=== PATIENT | female | born 1990 | race Caucasian/White ===

== ENCOUNTER 2017-12-14 14:14 | Emergency (ER) | payer OTHER ==
[~2017-12-14] VITALS: Ht 175.3 cm; Wt 89.2 kg
[~2017-12-14 14:14] MED LIST: PRENTAB26 PO
[2017-12-14 14:27] VITALS: TEMP 36.8; Ht 175.3 cm; Wt 89.2 kg
[2017-12-14] MEDS ORDERED: KETOROLAC TROMETHAMINE 30 MG/ML VIAL IV STA (14:42)
[2017-12-14] MEDS ORDERED: ONDANSETRON INJ 2 MG/ML 2 ML VIAL IV STA (14:42)
[2017-12-14] MEDS ORDERED: SODIUM CHLORIDE 0.9% 1000ML 1,000 ML IV STA (14:42)
[2017-12-14 15:12] LABS: BASO % 0.3 %; BASO ABS # 0.02 K/uL (0-0.2); EOS % 1.8 %; EOS ABS # 0.13 K/uL (0-0.5); HEMATOCRIT 45.8 % (37-47); HEMOGLOBIN 15.2 g/dL (12.0-16.0); IG# 0.02 K/uL (0.00-0.02); LYMPH % 32.2 %; LYMPH ABS # 2.31 K/uL (1.2-3.4); MEAN CELL VOLUME 82.7 fL (80-100); MEAN CORPUSCULAR HEMOGLOBIN 27.4 pg (25-34); MEAN CORPUSCULAR HGB CONC 33.2 g/dl (32-36); MEAN PLATELET VOLUME 10.4 fL (7.4-10.4); MONO % 6.1 %; MONO ABS # 0.44 K/uL (0.11-0.59); NEUT % 59.3 %; NEUT ABS # 4.26 K/uL (1.4-6.5); PLATELET COUNT 198 K/uL (130-400); RED CELL DISTRIBUTION WIDTH CV 13.7 % (11.5-14.5); RED CELL DISTRIBUTION WIDTH SD 41.1 fL (36.4-46.3); WHITE BLOOD COUNT 7.18 K/uL (4.8-10.8)
[2017-12-14] MEDS ORDERED: OPTIRAY 320 IV PRN (15:30)
[2017-12-14 15:41] LABS: ALBUMIN 4.3 gm/dl (3.4-5.0); CALCIUM 9.4 mg/dl (8.5-10.1); CREATININE 0.82 mg/dl (0.60-1.20); POTASSIUM 3.7 mmol/L (3.5-5.1); TOTAL PROTEIN 7.9 gm/dl (6.4-8.2)
[2017-12-14] MEDS ORDERED: ACET-1256 PO (16:09)
--- NOTE | 2017-12-14 17:25 | DIAGNOSTIC IMAGING REPORT ---
ABDOMEN AND PELVIS CT WITH IV CONTRAST CT DOSE: 684.52 mGycm HISTORY: Acute generalized abdominal pain abd pain and lower back pain TECHNIQUE: Multiaxial CT images of the abdomen and pelvis were performed following the use of intravenous contrast. A dose lowering technique was utilized adhering to the principles of ALARA. COMPARISON STUDY: Right upper quadrant ultrasound 10/08/2013 FINDINGS: Mild dependent subsegmental bibasilar atelectasis. There is no pneumatosis or pneumoperitoneum identified. Imaged inferior cardiac chambers are unremarkable. Gallbladder is mildly contracted. The liver, spleen, pancreas and adrenal glands appear to be within normal limits. Kidneys, ureters and bladder are unremarkable. Trace free pelvic fluid. Uterus and adnexa are within normal limits. Aorta and IVC are within normal limits. No bulky adenopathy identified. There is no bowel obstruction or focal bowel wall thickening identified. The appendix appears normal. Air-fluid level of the terminal ileum, likely physiologic. No mesenteric inflammatory changes. Breast parenchyma and soft tissues are within normal limits. The bones appear to be intact. Bone island of the right sacral ala and right pubic bone. IMPRESSION: 1. No acute intra-abdominal or intrapelvic abnormality identified. Normal appendix. 2. Mild free pelvic fluid, likely physiologic. Electronically signed by: Mat Figueroa M.D. 12/14/2017 5:23 PM Dictated Date/Time: 12/14/2017 5:17 PM
[2017-12-14 17:45] VITALS: BP 118/67; PULSE 66; O2SAT 99
--- NOTE | 2017-12-14 21:23 | EMERGENCY ROOM VISIT NOTE ---
History Report prepared by Wilfred: Alcides Eubanks Under the Supervision of: Dr. Moustapha Maynard D.O. First contact with patient: 14:35 Chief Complaint: BACK PAIN Stated Complaint: BACK PAIN, CHILLS, PELVIC CRAMPS History of Present Illness The patient is a 27 year old female who presents to the Emergency Room with complaints of worsening lower back pain beginning 4-6 days ago. The patient states that she has been having a mild ache in her right lower back that has worsened over the last few days. She notes that she started to develop bilateral pelvic cramping two days ago. She reports her back pain wraps around to her pelvis. The patient states that she feels as though her pain is near her kidney. She notes that her pain feels similar to menstrual cramps, but she reports that it feels worse. The patient states that she vomited once yesterday during work, but believes that it was due to her pain. She also complains of chills. She notes that her last bowel movement was this morning and was normal. She denies any CP, vaginal bleeding/discharge, and urinary symptoms. She reports that her last normal menstrual period was three weeks ago. The patient states that she does not take any medication and is not on control. Source of History: patient Onset: 4-6 days ago Position: back (lower) Symptom Intensity: mild Quality: ache Timing: worsening Associated Symptoms: + chills, + vomiting (x1), No chest pain, No urinary symptoms Note: The patient also complains of bilateral pelvic cramping. She also denies any abnormal bowel movements and vaginal bleeding/discharge. Review of Systems See HPI for pertinent positives & negatives. A total of 10 systems reviewed and were otherwise negative. Past Medical & Surgical Medical Problems: (1) 35 weeks, contractions (2) Back pain (3) Decreased movement (4) Dehydration (5) Nausea (6) (7) PROM (premature rupture of membranes) (8) Supervision of other normal (9) Vomiting Surgical Problems: (1) S/P tonsillectomy and adenoidectomy Family History Diabetes mellitus Heart disease Hypertension Social History Smoking Status: Current Every Day Smoker Alcohol Use: none Marital Status: Housing Status: lives with family Occupation Status: employed Current/Historical Medications Scheduled Acetaminophen (Tylenol), 500 MG PO PRN UD Allergies Coded Allergies: No Known Allergies (Unverified , 05/29/16) Physical Exam Vital Signs Date Time Temp Pulse Resp B/P (MAP) Pulse Ox O2 Delivery O2 Flow Rate FiO2 12/14/17 17:45 66 18 118/67 99 12/14/17 16:33 62 16 121/62 99 12/14/17 14:27 36.8 94 16 122/80 99 Room Air Physical Exam GENERAL: Sitting up in bed, alert, well appearing, well nourished, no distress, non-toxic EYE EXAM: normal conjunctiva. OROPHARYNX: no exudate, no erythema, lips, buccal mucosa, and tongue normal and mucous membranes are moist NECK: supple, no nuchal rigidity, no adenopathy, non-tender LUNGS: Clear to auscultation. Normal chest wall mechanics HEART: no murmurs, S1 normal and S2 normal ABDOMEN: abdomen soft, non-tender, normo-active bowel sounds, no masses, no rebound or guarding. BACK: Back is symmetrical on inspection and there is no deformity, no CVA tenderness, faint tenderness in right lower back in paraspinal region. SKIN: no rashes and no bruising UPPER EXTREMITIES: upper extremities are grossly normal. LOWER EXTREMITIES: No pitting edema. Flexion and extension of the hips, knees, ankles, and EHL 5/5 bilaterally. Gross sensation is intact. DPs are 2/4 bilateral. NEURO EXAM: Normal sensorium, cranial nerves II-XII grossly intact, normal speech, no gross weakness of arms, no gross weakness of legs. Medical Decision & Procedures ER Provider Diagnostic Interpretation: Radiology results as stated below per my review and the radiologist's interpretation: ABDOMEN AND PELVIS CT WITH IV CONTRAST FINDINGS: Mild dependent subsegmental bibasilar atelectasis. There is no pneumatosis or pneumoperitoneum identified. Imaged inferior cardiac chambers are unremarkable. Gallbladder is mildly contracted. The liver, spleen, pancreas and adrenal glands appear to be within normal limits. Kidneys, ureters and bladder are unremarkable. Trace free pelvic fluid. Uterus and adnexa are within normal limits. Aorta and IVC are within normal limits. No bulky adenopathy identified. There is no bowel obstruction or focal bowel wall thickening identified. The appendix appears normal. Air-fluid level of the terminal ileum, likely physiologic. No mesenteric inflammatory changes. Breast parenchyma and soft tissues are within normal limits. The bones appear to be intact. Bone island of the right sacral ala and right pubic bone. IMPRESSION: 1. No acute intra-abdominal or intrapelvic abnormality identified. Normal appendix. 2. Mild free pelvic fluid, likely physiologic. Electronically signed by: Mat Figueroa M.D. 12/14/2017 5:23 PM Laboratory Results 12/14/17 14:49 Red Blood Count 5.54, Mean Corpuscular Volume 82.7, Mean Corpuscular Hemoglobin 27.4, Mean Corpuscular Hemoglobin Concent 33.2, Mean Platelet Volume 10.4, Neutrophils (%) (Auto) 59.3, Lymphocytes (%) (Auto) 32.2, Monocytes (%) (Auto) 6.1, Eosinophils (%) (Auto) 1.8, Basophils (%) (Auto) 0.3, Neutrophils # (Auto) 4.26, Lymphocytes # (Auto) 2.31, Monocytes # (Auto) 0.44, Eosinophils # (Auto) 0.13, Basophils # (Auto) 0.02 12/14/17 14:49 Test 12/14/17 14:42 12/14/17 14:49 Urine Color YELLOW Urine Appearance CLEAR (CLEAR) Urine pH 8.0 (4.5-7.5) Urine Specific [place] 1.023 (1.000-1.030) Urine Protein NEG (NEG) Urine Glucose (UA) NEG (NEG) Urine Ketones NEG (NEG) Urine Occult Blood NEG (NEG) Urine Nitrite NEG (NEG) Urine Bilirubin NEG (NEG) Urine Urobilinogen NEG (NEG) Urine Leukocyte Esterase NEG (NEG) Urine WBC (Auto) 1-5 /hpf (0-5) Urine RBC (Auto) 0-4 /hpf (0-4) Urine Hyaline Casts (Auto) 1-5 /lpf (0-5) Urine Epithelial Cells (Auto) >30 /lpf (0-5) Urine Bacteria (Auto) NEG (NEG) Urine Test NEG (NEG) White Blood Count 7.18 K/uL (4.8-10.8) Red Blood Count 5.54 M/uL (4.2-5.4) Hemoglobin 15.2 g/dL (12.0-16.0) Hematocrit 45.8 % (37-47) Mean Corpuscular Volume 82.7 fL (80-100) Mean Corpuscular Hemoglobin 27.4 pg (25-34) Mean Corpuscular Hemoglobin Concent 33.2 g/dl (32-36) Platelet Count 198 K/uL (130-400) Mean Platelet Volume 10.4 fL (7.4-10.4) Neutrophils (%) (Auto) 59.3 % Lymphocytes (%) (Auto) 32.2 % Monocytes (%) (Auto) 6.1 % Eosinophils (%) (Auto) 1.8 % Basophils (%) (Auto) 0.3 % Neutrophils # (Auto) 4.26 K/uL (1.4-6.5) Lymphocytes # (Auto) 2.31 K/uL (1.2-3.4) Monocytes # (Auto) 0.44 K/uL (0.11-0.59) Eosinophils # (Auto) 0.13 K/uL (0-0.5) Basophils # (Auto) 0.02 K/uL (0-0.2) RDW Standard Deviation 41.1 fL (36.4-46.3) RDW Coefficient of Variation 13.7 % (11.5-14.5) Immature Granulocyte % (Auto) 0.3 % Immature Granulocyte # (Auto) 0.02 K/uL (0.00-0.02) Anion Gap 4.0 mmol/L (3-11) Est Creatinine Clear Calc Drug Dose 124.9 ml/min Estimated GFR () 115.3 Estimated GFR (Non- 99.5 BUN/Creatinine Ratio 14.2 (10-20) Calcium Level 9.4 mg/dl (8.5-10.1) Total Bilirubin 0.4 mg/dl (0.2-1) Direct Bilirubin 0.1 mg/dl (0-0.2) Aspartate Amino Transf (AST/SGOT) 12 U/L (15-37) Alanine Aminotransferase (ALT/SGPT) 14 U/L (12-78) Alkaline Phosphatase 71 U/L (45-117) Total Protein 7.9 gm/dl (6.4-8.2) Albumin 4.3 gm/dl (3.4-5.0) Lipase 145 U/L (73-393) Laboratory results per my review. Medications Administered Medications (Trade) Dose Ordered Sig/Dilan Route Start Time Stop Time Status Last Admin Dose Admin Sodium Chloride 1,000 ml @ 999 mls/hr Q1H1M STAT IV 12/14/17 14:42 12/14/17 15:42 DC 12/14/17 15:00 999 MLS/HR Ondansetron HCl (Zofran Inj) 4 mg NOW STAT IV 12/14/17 14:42 12/14/17 14:43 DC 12/14/17 15:01 4 MG Ketorolac Tromethamine (Toradol Inj) 30 mg NOW STAT IV 12/14/17 14:42 12/14/17 14:43 DC 12/14/17 15:01 30 MG ED Course ED COURSE: Vital signs were reviewed and were shown to be normal. The patients medical record was reviewed The above diagnostic studies were performed and reviewed. ED treatments and interventions as stated above. 1435: The patient was evaluated in room A3. A complete history and physical examination was performed. 1442: Toradol Inj 30mg IV, Zofran Inj 4mg IV, Sodium Chloride 1000 ml @ 999 mls/ hr IV 1801: Upon reevaluation, the patient is stable. I discussed my findings with the patient and she understands and agrees with the treatment plan. Based on the patients age, coexisting illnesses, exam and lab findings the decision to treat as an outpatient was made. The patient remained stable while under my care. The patient appeared well at the time of discharge. Medical Decision Differential diagnoses includes but is not limited to gastritis, peptic ulcer disease, GERD, gallbladder disease, pancreatitis, small bowel obstruction, acute coronary syndrome, pericarditis, ischemic bowel, irritable bowel disease, irritable bowel syndrome, appendicitis, diverticulitis, malignancy, hernia, urinary tract infection, torsion, /ectopic , perforation, trauma, infectious, musculoskeletal, disc herniation, fracture, aortic disease, metastatic disease, cord compression, discitis, infection, renal colic, gastrointestinal, acute exacerbation of chronic back pain, sciatica, cauda equina, as well as others were entertained. Patient is a 27-year-old female who presents the ER for lower back pain associated with abdominal cramps. Flank pain has been present for the past 4-5 days on the right. Cramping started about 2 days ago. She did vomit once. CBC along with BMP, LFTs, bilirubin and lipase is unremarkable. UA was negative. was negative. Patient was updated at bedside. CT abdomen pelvis was benign. Nothing to suggest cauda equina. Patient was given Zofran fluids and Toradol. She did feel slightly better. She is updated at bedside. No vaginal complaints or vaginal discharge. I do not feel as though this consistent with PND. Patient was discharged follow-up with PCP as an outpatient. Discussed with Pt concerning signs and symptoms to watch out for. Pt was instructed to follow up with their PCP and discussed with the patient their option to return to the ED at anytime for persistent or worsening symptoms. The appropriate anticipatory guidance and out-patient management, including indications for return to the emergency department, were explained at length to the patient and understood. Medication Reconcilliation Current Medication List: was personally reviewed by me Blood Pressure Screening Patient's blood pressure: Normal blood pressure Blood pressure disposition: Did not require urgent referral Impression Primary Impression: Abdominal pain Additional Impression: Lower back pain Scribe Attestation The scribe's documentation has been prepared under my direction and personally reviewed by me in its entirety. I confirm that the note above accurately reflects all work, treatment, procedures, and medical decision making performed by me. Departure Information Dispostion Home / Self-Care Referrals No Doctor, Assigned (PCP) Forms HOME CARE DOCUMENTATION FORM, IMPORTANT VISIT INFORMATION Patient Instructions My [facility] Additional Instructions Please follow up with your primary care doctor with in the next 24 hours. Any worsening of your symptoms, please return to the ED immediately. This includes any fevers greater than 100.4, worsening pain, chest pain, shortness breath, persistent nausea, vomiting, unable to eat or drink, or any other concerning signs or symptoms from your standpoint. Please take Tylenol or Motrin as needed for pain. Problem Qualifiers Primary Impression: Abdominal pain Abdominal location: unspecified location Qualified Codes: R10.9 - Unspecified abdominal pain Additional Impression: Lower back pain Chronicity: acute Back pain laterality: bilateral Sciatica presence: without sciatica Qualified Codes: M54.5 - Low back pain
== END 2017-12-14 17:52 | disposition home or self-care (01) ==
LOC: C.EDB 14:15 → C.EDA 17:52
DX: R10.2 Pelvic and perineal pain (principal); M54.5 Low back pain; F17.200 Nicotine dependence, unspecified, uncomplicated

== ENCOUNTER 2019-02-10 13:09 | Inpatient (IN) ==
[2019-02-10] MEDS ORDERED: OXYTOCIN 30 UNITS/500 ML BAG IV PRN ×3 (13:23→23:50)
[2019-02-10] MEDS ORDERED: PENICILLIN G POTASSIUM 6 MU in DEXTROSE 5% 250 ML IV STA (13:51)
[2019-02-10] MEDS: LACTATED RINGER'S 1,000 ML IV PRN ×2 (14:00→16:54)
[2019-02-10 14:02] LABS: Hematocrit (blood only) 37.7 % (37-47); Hemoglobin 12.5 g/dL (12.0-16.0); Mean Corpuscular Volume 77.6 fL (80-100); Mean Platelet Volume 10.2 fL (7.4-10.4); Platelet Count 161 K/uL (130-400); RDW Coefficient of Variation 13.5 % (11.5-14.5); RDW Standard Deviation 38.3 fL (36.4-46.3); Red Blood Count 4.86 M/uL (4.2-5.4); White Blood Count 11.14 K/uL (4.8-10.8)
[2019-02-10 14:06] LABS: Mean Corpuscular Hgb Conc 33.2 g/dL (32-36)
[2019-02-10] MEDS ORDERED: BUPIVACAINE 0.25% 30 ML VIAL ONE (16:05)
[2019-02-10] MEDS ORDERED: fentaNYL citrate 100 MCG/2 ML VIAL ONE (16:06)
[2019-02-10] MEDS ORDERED: fentaNYL 2MCG/ML ROPIV 1.25MG/ML 100 ML BAG EPI ONE (16:06)
[2019-02-10] MEDS ORDERED: ePHEDrine sulfate 50 MG/ML AMP ONE (16:06)
--- NOTE | 2019-02-10 16:47 | Anesthesiology Consultation ---
Date of Service February 10, 2019 Assessment & Plan Chart Review Chart Review: Acceptable Risk for Surgery, Patient NOT seen in Pre Admission Testing and Acceptable Risk for Labor Epidural Consults Requested none ASA ASA2 Proposed Anesthesia Anesthesia Type: Labor Epidural and CSE Risk / Benefits Reviewed With: PT / POA / Parent / Guardian, Accepts Plan and Informed Consent Obtained History Height/Weight Height: 5 ft 8 in Weight: 109.769 kg Allergies Allergy/AdvReac Type Severity Reaction Status Date / Time No Known Allergies Allergy Verified 02/09/19 13:27 Medications Home Medications Medication Instructions Recorded Confirmed Last Taken vit-iron fum-folic ac 1 tab PO DAILY 02/09/19 02/10/19 02/10/19 08:00 [ Vitamin] Active Medications Generic Name Dose Route Start Last Admin Trade Name Freq PRN Reason Stop Dose Admin Oxytocin 30 units in 500 mls @ 10 mls/hr 02/10/19 13:26 02/10/19 16:37 Pitocin IV 03/12/19 13:25 0.6 units/hr .Q24H PRN 10 mls/hr Labor Induction/Augmentation Titration Protocol 0.6 UNITS/HR Lactated Ringer's 1,000 mls @ 125 mls/hr 02/10/19 13:23 02/10/19 16:02 Lr IV 02/12/19 13:22 999 mls/hr .Q8H PRN Infusion L&D Protocol Protocol NPO Date Last Intake of Fluids: 02/10/19 Time Last Intake of Fluids: 14:00 Date Last Intake of Solids: 02/10/19 Time Last Intake of Solids: 14:00 Past Medical History Medical History GERD (gastroesophageal reflux disease) Obese Exercise / Class Metabolic Activity II 4-5 Yardwork/Stairs/Walk up hill Past Surgical History Surgical History H/O LEEP Past Anesthesia History No Hx of Anesthesia Complications and No Family Hx of Anesthesia Complications History of PONV No Hx of PONV and No Hx of Motion Sickness Social History Smoking Status: Former smoker Do You Dip or Chew Tobacco: No Hx Alcohol Use: No Hx Substance Use: No Physical Exam Vital Signs Last Vital Signs Temp 37.1 C 02/10/19 16:36 Pulse 84 02/10/19 16:42 Resp 20 02/10/19 16:36 BP 127/91 02/10/19 16:36 Pulse Ox 100 02/10/19 16:42 Constitutional + obese ENMT Thyromental Distance: > or= 3.5 Finger Breadths Mallampati Class: II Neck normal visual inspection and trachea midline; neck extension not limited Respiratory normal respiratory effort Auscultation: lungs clear to auscultation bilaterally Cardiovascular Rate/Rhythm: regular rate and regular rhythm Heart Sounds: no murmur Musculoskeletal Spine: lumbar spine normal to inspection; normal cervical ROM Neurologic moves all extremities Motor/Sensory: no sensory deficit Psychiatric Orientation: alert and oriented x 3 Testing Laboratory Results 02/10/19 13:51
[2019-02-10] MEDS ORDERED: NALOXONE HCL 0.4 MG/1 ML VIAL/CARP IV PRN (17:09)
[2019-02-10] MEDS ORDERED: fentaNYL 2MCG/ML ROPIV 1.25MG/ML 100 ML BAG EPI PRN (17:09)
[2019-02-10] MEDS ORDERED: NALBUPHINE HCL INJ 10 MG/ML AMP IV PRN (17:09)
[2019-02-10] MEDS ORDERED: ONDANSETRON INJ 2 MG/ML 2 ML VIAL IV PRN (17:09)
[2019-02-10] MEDS ORDERED: DiphenhydrAMINE HCL 50 MG/ML VIAL IV PRN (17:09)
[2019-02-10] MEDS ORDERED: ePHEDrine sulfate 50 MG/ML AMP IV PRN (17:09)
[2019-02-10] MEDS ORDERED: PROMETHAZINE HCL 25 MG in SODIUM CHLORIDE 0.9% 50 ML IV PRN (17:09)
[2019-02-10] MEDS ORDERED: NALOXONE HCL 1 MG in SODIUM CHLORIDE 0.9% 1000ML 1,000 ML IV PRN (17:09)
--- NOTE | 2019-02-10 18:18 | Labor Progress Brief Note ---
Date of Service February 10, 2019 Subjective Reason For Note: Routine Evaluation Assessment & Plan (1) PROM (premature rupture of membranes): 28yo at 37.1 weeks GA. PROM. 1. Fetus: Cat 1 2. Labor: PROM. will start oxytocin. 3. Vitals: wnl 4. GBS Unknown with possible rupture > 24 hour will start PCN. (2) Term : Physical Exam Genitourinary: OB Exam Abdomen: + vertex and + regular contractions Manual OB Exam: + cervical dilation 1 cm, + cervical effacement 70% and + station -2 OB Exam Monitor Tracing: + external FHT monitor used, + external uterine monitor used and + category I Results & Data Vital Signs (Past 12 Hours) Vital Signs Temp Pulse Resp BP Pulse Ox 02/10/19 18:07 73 99 02/10/19 18:04 92 H 111/64 02/10/19 18:02 85 98 02/10/19 18:00 37.0 C 20 02/10/19 17:59 101 H 109/57 L 02/10/19 17:57 91 H 99 02/10/19 17:54 100 H 116/60 02/10/19 17:52 109 H 99 02/10/19 17:50 89 117/56 L 02/10/19 17:47 95 H 98 02/10/19 17:45 90 118/58 L 02/10/19 17:42 102 H 98 02/10/19 17:39 96 H 111/55 L 02/10/19 17:37 103 H 98 02/10/19 17:34 100 H 114/58 L 02/10/19 17:32 93 H 99 02/10/19 17:30 87 18 118/59 L 02/10/19 17:27 98 H 100 02/10/19 17:25 100 H 117/59 L 02/10/19 17:22 101 H 99 02/10/19 17:19 94 H 101/57 L 02/10/19 17:17 100 H 109/59 L 99 02/10/19 17:15 108 H 113/69 02/10/19 17:13 88 115/64 02/10/19 17:12 119 H 98 02/10/19 17:11 108 H 111/64 02/10/19 17:09 126 H 20 103/62 02/10/19 17:07 109 H 121/58 L 100 02/10/19 17:05 120 H 121/75 02/10/19 17:03 103 H 20 120/67 02/10/19 17:02 110 H 134/77 99 02/10/19 16:57 114 H 99 02/10/19 16:52 124 H 100 02/10/19 16:47 105 H 98 02/10/19 16:42 84 100 02/10/19 16:37 108 H 98 02/10/19 16:36 37.1 C 82 20 127/91 02/10/19 16:32 101 H 98 02/10/19 16:27 98 H 98 02/10/19 16:22 101 H 100 02/10/19 16:17 112 H 96 02/10/19 15:36 100 H 131/85 02/10/19 14:31 37.2 C 85 20 131/79 02/10/19 13:27 103 H 148/97 H 02/10/19 13:12 36.7 C 125 H 20 142/99 H
--- NOTE | 2019-02-10 18:22 | History & Physical Report ---
Date of Service February 10, 2019 Assessment & Plan (1) PROM (premature rupture of membranes): 28yo at 37.1 weeks GA. PROM. 1. Fetus: Cat 1 2. Labor: PROM. will start oxytocin. 3. Vitals: wnl 4. GBS Unknown with possible rupture > 24 hour will start PCN. (2) Term : History of Present Illness Primary Care Provider: NO PCP 28yo at 37.1 weeks GA. PROM with positive Amnisure in clinic today. Reports irregular contractions. Denies VB, LOF. Good FM. complicated by prior LEEP. Allergies Allergy/AdvReac Type Severity Reaction Status Date / Time No Known Allergies Allergy Verified 02/09/19 13:27 Home Medications Home Medications Medication Instructions Recorded Confirmed Type vit-iron fum-folic ac 1 tab PO DAILY 02/09/19 02/10/19 History [ Vitamin] Patient History Medical History GERD (gastroesophageal reflux disease) Obese Surgical History H/O LEEP Social History Preferred Language: Azeri Communication Ability: Effective Beliefs That Will Affect Care: None marital status: Current Living Situation: Spouse Feels Safe at Home: Yes Smoking Status: Former smoker Second Hand Exposure: No Hx Alcohol Use: No Hx Substance Use: No Physical Exam Genitourinary: OB Exam Abdomen: + vertex and + irregular contractions Manual OB Exam: + cervical dilation 1 cm, + cervical effacement 50% and + station -2 OB Exam Monitor Tracing: + external FHT monitor used, + external uterine monitor used and + category I Results & Data Vital Signs (Past 12 Hours) Vital Signs Temp Pulse Resp BP Pulse Ox 02/10/19 18:12 85 100 02/10/19 18:07 73 99 02/10/19 18:04 92 H 111/64 02/10/19 18:02 85 98 02/10/19 18:00 37.0 C 20 02/10/19 17:59 101 H 109/57 L 02/10/19 17:57 91 H 99 02/10/19 17:54 100 H 116/60 02/10/19 17:52 109 H 99 02/10/19 17:50 89 117/56 L 02/10/19 17:47 95 H 98 02/10/19 17:45 90 118/58 L 02/10/19 17:42 102 H 98 02/10/19 17:39 96 H 111/55 L 02/10/19 17:37 103 H 98 02/10/19 17:34 100 H 114/58 L 02/10/19 17:32 93 H 99 02/10/19 17:30 87 18 118/59 L 02/10/19 17:27 98 H 100 02/10/19 17:25 100 H 117/59 L 02/10/19 17:22 101 H 99 02/10/19 17:19 94 H 101/57 L 02/10/19 17:17 100 H 109/59 L 99 02/10/19 17:15 108 H 113/69 02/10/19 17:13 88 115/64 02/10/19 17:12 119 H 98 02/10/19 17:11 108 H 111/64 02/10/19 17:09 126 H 20 103/62 02/10/19 17:07 109 H 121/58 L 100 02/10/19 17:05 120 H 121/75 02/10/19 17:03 103 H 20 120/67 02/10/19 17:02 110 H 134/77 99 02/10/19 16:57 114 H 99 02/10/19 16:52 124 H 100 02/10/19 16:47 105 H 98 02/10/19 16:42 84 100 02/10/19 16:37 108 H 98 02/10/19 16:36 37.1 C 82 20 127/91 02/10/19 16:32 101 H 98 02/10/19 16:27 98 H 98 02/10/19 16:22 101 H 100 02/10/19 16:17 112 H 96 02/10/19 15:36 100 H 131/85 02/10/19 14:31 37.2 C 85 20 131/79 02/10/19 13:27 103 H 148/97 H 02/10/19 13:12 36.7 C 125 H 20 142/99 H
[2019-02-10] MEDS: PENICILLIN G POTASSIUM 3 MU in DEXTROSE 5% 100 ML IV PRN ×2 (18:34→22:21)
[2019-02-10] MEDS ORDERED: BISACODYL 10 MG SUPP PR PRN (23:50)
[2019-02-10] MEDS ORDERED: SUPERCREAM 0.870% 15 GM JAR EXT PRN (23:50)
[2019-02-10] MEDS ORDERED: ACETAMINOPHEN 325 MG TAB PO PRN (23:50)
[2019-02-10] MEDS ORDERED: HYDROCORTISONE ACETATE 25 MG SUPP PR PRN (23:50)
[2019-02-10] MEDS ORDERED: BENZOCAINE 20% AER SPR 82.5 GM CAN EXT PRN (23:50)
--- NOTE | 2019-02-11 00:56 | Anesthesia Procedure Note ---
Date of Service February 11, 2019 Anesthesia Post Epidural Note Vital Signs Vital Signs: Temp Pulse Resp BP Pulse Ox 36.7 C 88 16 121/67 96 02/10/19 23:00 02/11/19 00:45 02/11/19 00:45 02/11/19 00:45 02/10/19 23:57 Pain Intensity Abdomen: Pain Intensity: 5 Notes Mental Status: alert / awake / arousable Nausea / Vomiting: adequately controlled Pain: adequately controlled Airway Patency, RR, SpO2: stable & adequate BP & HR: stable & adequate Hydration State: stable & adequate Neuraxial Anesthesia: was administered and sensory block is resolving Anesthetic Complications: no major complications apparent Epidural: Removed without complications and With tip intact
--- NOTE | 2019-02-11 01:37 | Delivery Summary ---
DATE OF OPERATION: 02/10/2019 DATE OF SERVICE: 02/10/2019 PROCEDURE: Normal spontaneous vaginal delivery. SURGEON: Renny Blackman MD PREOPERATIVE DIAGNOSES: 1. Single intrauterine at 37 weeks gestational age. 2. Premature rupture of membranes. 3. Group B streptococcus unknown. POSTOPERATIVE DIAGNOSES: 1. Single intrauterine at 37 weeks gestational age. 2. Premature rupture of membranes. 3. Group B streptococcus unknown. 4. Status post delivery. ESTIMATED BLOOD LOSS: 200 mL. DRAINS: None. FLUIDS: Continuous lactated ringer. URINE OUTPUT: Not measured. COMPLICATIONS: None. FINDINGS: There is noted to be a viable with Apgars of 8 and 9 at 1 and 5 minutes respectively and weight pending. INDICATIONS: Ms. Heidi Mackay is 28-year-old G3, P2-0-0-2, admitted at 37 weeks gestational age with premature rupture of membranes. The patient reports that she has been leaking for approximately 24 hours. Prior to evaluation, she had positive Amnisure in clinic and on initial evaluation was found to be 1 cm dilated, 50% effaced, -2 station. The patient was started on oxytocin per regular protocol. She received an epidural for anesthesia and progressed in labor. PROCEDURE: The patient progressed to 10 cm dilated, 100% effaced, +3 station, pushed over intact perineum over 1 contraction, delivered a viable . Head of the delivered in ZANA position, rest into right transverse. Nuchal cord x1 was noted. Body and shoulders quickly followed. was noted to be vigorous upon delivery. The 1 minute delayed cord clamping was initiated for which the cord was double clamped and cut. The cord blood was then obtained. Attention was then turned to delivery. The placenta was delivered intact, 3-vessel cord, gentle cord traction. On inspection of the perineum, vagina and cervix, there is noted to be no lacerations. Needle, sponge and instrument counts were correct at the completion of the case. Both mother and were stable in the immediate post-delivery. I attest to the content of the Intraoperative Record and any orders documented therein. Any exception s are noted below.
--- NOTE | 2019-02-11 05:34 | Obstetrical Progress Note ---
Date of Service February 11, 2019 Assessment & Plan Day #:: 1 ([28 y/o s/p vaginal delivery @ 37 wks] -PPD#1 - GBS pending, Blood Type O+ - Feels well today. Eating well, voiding well, ambulating well. - Pain well controlled. - Routine post care - After discharge will have [address] Blackman.) Subjective Ambulation: ambulating normally Voiding: no voiding problems Passing Gas:: No Diet Tolerance:: regular diet Lochia:: Moderate (slightly more than heavy period) Feeding Type:: breast feeding Current Pain Level(1-10): 2 (crampy) Physical Exam OB PE General: Alert, oriented. No acute distress. Cardiac: Regular rate and rhythm, no murmurs/rubs/gallops. Respiratory: Clear to auscultation anterior and posteriorly, no wheezes/rales/rhonchi. No increased work of breathing. Symmetrical chest rise. No respiratory distress. Abdomen: Soft, nontender, nondistended. Bowel sounds present. Uterus: Uterine fundus firm, palpable 1 cm above umbilicus. Lower Extremities: No lower extremity edema or swelling. No deep calf pain. Manasa's negative bilaterally. OB ROS Denies fever, chills, sweats Denies shortness of breath, difficulty breathing, chest pain, palpitations, chest pressure. Denies breast pain. Denies dysuria. Denies headache. Results & Data Vital Signs (Past 12 Hours) Vital Signs Temp Pulse Pulse Resp BP BP Pulse Ox 02/11/19 02:30 36.8 C 75 18 124/77 02/11/19 02:15 37.2 C 91 H 16 126/77 02/11/19 01:46 106 H 132/61 02/11/19 01:30 90 115/55 L 02/11/19 01:15 108 H 18 118/70 02/11/19 01:00 93 H 118/66 02/11/19 00:45 88 16 121/67 02/11/19 00:30 92 H 16 129/68 02/11/19 00:18 97 H 130/68 02/11/19 00:16 105 H 16 144/102 H 02/11/19 00:00 85 18 117/60 02/10/19 23:57 84 96 02/10/19 23:52 89 96 02/10/19 23:47 81 98 1819 23:46 87 20 121/57 L 02/10/19 23:42 84 100 1819 23:37 114 H 100 02/10/19 23:32 97 H 100 18 23:27 85 100 02/10/19 23:22 86 96 18 23:19 84 20 122/68 02/10/19 23:17 90 98 02/10/19 23:12 91 H 99 02/10/19 23:07 93 H 98 02/10/19 23:04 116 H 115/66 02/10/19 23:02 100 H 98 02/10/19 23:00 36.7 C 18 02/10/19 22:57 122 H 98 02/10/19 22:52 89 95 02/10/19 22:50 85 128/76 02/10/19 22:47 80 96 02/10/19 22:42 93 H 98 02/10/19 22:37 90 97 02/10/19 22:35 87 16 120/73 02/10/19 22:32 85 98 02/10/19 22:27 90 100 02/10/19 22:22 100 H 98 02/10/19 22:19 95 H 16 155/88 H 02/10/19 22:17 96 H 99 02/10/19 22:12 79 99 02/10/19 22:07 96 H 96 02/10/19 22:04 86 16 120/59 L 02/10/19 22:02 96 H 96 02/10/19 21:57 98 H 97 19 21:52 89 97 1819 21:49 90 118/67 19 21:47 96 H 96 1819 21:42 89 96 1819 21:37 90 97 1819 21:34 88 18 117/61 18 21:32 92 H 97 1819 21:27 85 97 1819 21:22 98 H 98 1819 21:19 88 124/74 18/19 21:17 87 96 1819 21:12 85 97 1819 21:07 100 H 96 07/18/19 21:04 102 H 117/76 07/18/19 21:02 100 H 96 07/18/19 21:00 37.1 C 16 07/18/19 20:57 103 H 96 07/18/19 20:52 95 H 97 07/18/19 20:49 90 18 119/61 07/18/19 20:47 89 96 07/18/19 20:42 118 H 97 07/18/19 20:37 97 H 97 07/18/19 20:34 88 125/69 07/18/19 20:32 102 H 96 07/18/19 20:27 90 98 07/18/19 20:22 102 H 98 07/18/19 20:20 103 H 16 129/64 07/18/19 20:17 107 H 98 07/18/19 20:12 103 H 99 07/18/19 20:07 103 H 98 07/18/19 20:04 96 H 16 116/73 07/18/19 20:02 86 97 07/18/19 19:57 95 H 97 07/18/19 19:52 106 H 98 07/18/19 19:49 106 H 111/66 07/18/19 19:47 111 H 98 07/18/19 19:42 97 H 98 07/18/19 19:37 105 H 98 07/18/19 19:35 100 H 18 116/69 07/18/19 19:32 89 99 07/18/19 19:27 88 99 07/18/19 19:22 83 99 07/18/19 19:17 82 98 07/18/19 19:12 105 H 100 07/18/19 19:07 92 H 100 07/18/19 19:04 100 H 122/76 07/18/19 19:02 90 99 07/18/19 19:00 37.0 C 16 07/18/19 18:57 91 H 99 07/18/19 18:52 90 99 07/18/19 18:49 99 H 116/73 07/18/19 18:47 93 H 98 07/18/19 18:42 92 H 98 07/18/19 18:37 98 H 97 07/18/19 18:36 78 124/80 07/18/19 18:32 104 H 99 07/18/19 18:30 18 07/18/19 18:27 102 H 99 07/18/19 18:22 104 H 98 02/10/19 18:21 93 H 117/72 02/10/19 18:17 97 H 97 02/10/19 18:12 85 100 02/10/19 18:07 73 99 02/10/19 18:04 92 H 111/64 02/10/19 18:02 85 98 02/10/19 18:00 37.0 C 20 02/10/19 17:59 101 H 109/57 L 02/10/19 17:57 91 H 99 02/10/19 17:54 100 H 116/60 02/10/19 17:52 109 H 99 02/10/19 17:50 89 117/56 L 02/10/19 17:47 95 H 98 02/10/19 17:45 90 118/58 L 02/10/19 17:42 102 H 98 02/10/19 17:39 96 H 111/55 L 02/10/19 17:37 103 H 98 02/10/19 17:34 100 H 114/58 L
[2019-02-11 07:16] LABS: Hematocrit (blood only) 35.1 % (37-47); Hemoglobin 11.6 g/dL (12.0-16.0)
--- NOTE | 2019-02-11 08:29 | Communication Note ---
Date of Service: February 11, 2019 I reviewed the notes and saw this patient on the am of 02/11. Agree with the note by the resident, Dr. Romo. I unfortunately, did not add this attesta tion note to the document.
[2019-02-11] MEDS: DOCUSATE SODIUM 100 MG CAP PO SCH ×2 (08:52→19:56)
[2019-02-11] MEDS: PRENATAL VITAMIN 1 TAB PO SCH (08:52)
[2019-02-11] MEDS: IBUPROFEN 600 MG TAB PO PRN ×3 (08:52→19:55)
[2019-02-11] MEDS ORDERED: BISACODYL 5 MG TABEC PO SCH (20:00)
--- NOTE | 2019-02-12 05:11 | Obstetrical Progress Note ---
Date of Service <Corey Romo MD - Last Filed: 02/12/19 07:30> February 12, 2019 Assessment & Plan <Corey Romo MD - Last Filed: 02/12/19 07:30> Day #:: 2 ([28 y/o s/p vaginal delivery @ 37 weeks] -PPD# 2 - GBS pending, Blood Type O+ - Feels well today. Eating well, voiding well, ambulating well. - Pain well controlled. - Routine post care - After discharge will have [address] Blackman.) Subjective <Corey Romo MD - Last Filed: 02/12/19 07:30> Ambulation: ambulating normally Voiding: no voiding problems Passing Gas:: Yes Diet Tolerance:: regular diet Lochia:: Small (less than a period) Feeding Type:: breast feeding Current Pain Level(1-10): 3 (taking Motrin) Physical Exam <Corey Romo MD - Last Filed: 02/12/19 07:30> OB PE General: Alert, oriented. No acute distress. Cardiac: Regular rate and rhythm, no murmurs/rubs/gallops. Respiratory: Clear to auscultation anterior and posteriorly, no wheezes/rale s/rhonchi. No increased work of breathing. Symmetrical chest rise. No respiratory distress. Abdomen: Soft, nontender, nondistended. Bowel sounds present. Uterus: Uterine fundus firm, palpable 1 cm below umbilicus. Lower Extremities: No lower extremity edema or swelling. No deep calf pain. Manasa's negative bilaterally. OB ROS Denies fever, chills, sweats Denies shortness of breath, difficulty breathing, chest pain, palpitations, chest pressure. Denies breast pain. Denies dysuria. Denies headache. Results & Data <Corey Romo MD - Last Filed: 02/12/19 07:30> Vital Signs (Past 12 Hours) Vital Signs Temp Pulse Resp BP Pulse Ox 02/11/19 23:10 36.3 C L 63 16 129/83 97 02/11/19 19:50 36.4 C L 88 16 119/77 98 <Gail Ruiz MD, FACOG - Last Filed: 02/12/19 08:00> Co-Signing Physician Notes Resident Physician Supervision Note: I interviewed and examined the patient. Discussed with Dr. Romo and agree with findings and plan as documented in the note. Any exceptions or clarifications are listed here: Doing well. PLan d/c. Instructions given. Documented By: Gail Ruiz MD, FACOG
[2019-02-12] MEDS: DOCUSATE SODIUM 100 MG CAP PO SCH (08:36)
[2019-02-12] MEDS: PRENATAL VITAMIN 1 TAB PO SCH (08:36)
[2019-02-12] MEDS ORDERED: DIPHTHERIA/TETANUS/PERTUSSIS 0.5 ML SYR/VIAL IM ONE (09:00)
[2019-02-12] MEDS: IBUPROFEN 600 MG TAB PO PRN (12:15)
== END 2019-02-12 14:53 | disposition home or self-care (01) | DRG 807 ==
LOC: OPB 13:09 → 4S1 13:10 → 4S2 02-11 02:25

== ENCOUNTER 2022-02-13 04:14 | Inpatient (IN) ==
[2022-02-13] MEDS ORDERED: OXYTOCIN 30 UNITS/500 ML BAG IV PRN ×2 (04:28→06:38)
[2022-02-13] MEDS ORDERED: LACTATED RINGER'S 1,000 ML IV PRN (04:28)
[2022-02-13] MEDS ORDERED: PENICILLIN G POTASSIUM 6 MU in DEXTROSE 5% 250 ML IV STA (04:28)
--- NOTE | 2022-02-13 04:38 | History & Physical Report ---
Date of Service February 13, 2022 Assessment & Plan (1) Encounter for supervision of normal in multigravida: Plan: Multip at 39+ weeks in active labor start GBS prophylaxis epidural if desired anticipate vaginal History of Present Illness Primary Care Provider: NO PCP patient is a 31-year-old 4 para 3-0-0-3 female EDC of 02/14/2022 who presents in active labor. GBS is positive. Allergies Allergy/AdvReac Type Severity Reaction Status Date / Time No Known Allergies Allergy Verified 02/13/22 04:29 Home Medications Medication Instructions Recorded Confirmed Type vitamins-iron fumarate 27 1 tab PO DAILY 02/09/19 02/13/22 History mg iron-folic acid 0.8 mg tablet ( Vitamin) Patient History Medical History GERD (gastroesophageal reflux disease) History of chicken pox Obese Severe dysplasia of cervix (ABHINAV III) Surgical History H/O LEEP S/P tonsillectomy and adenoidectomy Family History Grandmother (Maternal) Breast cancer Denies family history of Ovarian cancer Colorectal cancer Social History (Updated 07/01/21 @ 10:51 by Eden Crow) Smoking Status: Former smoker Tobacco Type: Cigarettes Second Hand Exposure: No; Hx Alcohol Use: No Hx Substance Use: No Preferred Language: Qatari Communication Ability: Effective Substance Abuse Nurse Required: No Beliefs That Will Affect Care: None marital status: marital status details: Eron Mackay (30) [phone] Current Living Situation: Spouse and Family Current Living Situation Comment: lives with spouse, 3 children, dog current occupational status: unemployed current occupation: [employer] Feels Safe at Home: Yes Assistive Devices: None Review of Systems All systems reviewed & are unremarkable except as noted in HPI & below Physical Exam Constitutional: WD/WN, vitals as above Psychiatric: A+Ox3, euthymic affect Genitourinary: OB Exam Abdomen: + estimated weight (7-8 pounds) and + regular contractions Manual OB Exam: + cervical dilation 6 cm OB Exam Monitor Tracing: + external FHT monitor used, + external uterine monitor used, + category I and + normal FHT variability Results & Data ([facility]) Vital Signs (Past 12 Hours) Vital Signs Pulse BP 02/13/22 04:24 97 H 138/79 Coding Level of Care Code None Diagnoses Encounter for supervision of normal in multigravida Z34.80
[2022-02-13] MEDS ORDERED: IBUPROFEN 600 MG TAB PO ONE (05:16)
--- NOTE | 2022-02-13 05:23 | Delivery Summary ---
Vaginal Delivery Summary Date of Service February 13, 2022 Vaginal Delivery Summary Patient is a 31-year-old 4 para 3-0-0-3 female EDC of 02/14/2022 who began having regular contractions that woke her up at approximately at 3 AM. Upon arrival in labor and delivery she was 6 cm and then rapidly went to full dilation. She had a small amount of leaking fluid at approximately 3 AM at the onset of her contractions. She pushed effectively over intact perineum for delivery of a viable male infant. Loose nuchal cord was reduced prior to delivering the rest of the . With maternal effort the rest of the infant delivered easily and was then placed on mother's abdomen for further attention and drying. After drying and stimulation, he was vigorous and crying. Cord was clamped and cut after 1 minute. After cord blood was obtained, placenta was expressed intact with a three-vessel cord. Perineum was noted to be intact except for a small abrasion on the perineum. Estimated blood loss was 300 cc. bleeding was controlled with dilute Pitocin and fundal massage. Mother and infant doing well after delivery. She was GBS positive however because of the precipitous delivery she did not receive penicillin G prophylaxis. [facility] Vaginal Delivery Charge Delivery Type Details: [facility]
[2022-02-13 05:59] LABS: Hemoglobin 11.3 g/dl (12.0-16.0); Mean Corpuscular Hemoglobin 25.1 pg (25.0-34.0); Mean Corpuscular Hgb Conc 32.3 g/dL (32.0-36.0); Mean Corpuscular Volume 77.8 fL (80.0-100.0); Mean Platelet Volume 10.3 fL (9.4-12.3); Platelet Count 157 K/uL (130-400); RDW Coefficient of Variation 14.6 % (11.5-14.5); RDW Standard Deviation 41.1 fL (36.4-46.3); White Blood Count 9.21 K/ul (4.8-10.8)
[2022-02-13] MEDS ORDERED: ACETAMINOPHEN 325 MG TAB PO PRN (06:38)
[2022-02-13] MEDS ORDERED: HYDROCORTISONE ACETATE 25 MG SUPP PR PRN (06:38)
[2022-02-13] MEDS ORDERED: oxyCODONE/ACETAMINOPHEN 5mg/325mg TAB PO PRN (06:38)
[2022-02-13] MEDS ORDERED: BENZOCAINE 20% AER SPR 82.5 GM CAN EXT PRN (06:38)
[2022-02-13] MEDS ORDERED: DIPHTHERIA/TETANUS/PERTUSSIS 0.5 ML SYR/VIAL IM ONE (06:38)
[2022-02-13] MEDS: PRENATAL VITAMIN 1 TAB PO SCH (07:15)
[2022-02-13] MEDS: DOCUSATE SODIUM 100 MG CAP PO SCH ×2 (07:15→20:49)
[2022-02-13] MEDS ORDERED: PENICILLIN G POTASSIUM 3 MU in DEXTROSE 5% 100 ML IV PRN (07:29)
[2022-02-13] MEDS: IBUPROFEN 600 MG TAB PO PRN ×3 (12:23→20:49)
--- NOTE | 2022-02-13 13:03 | Obstetrical Progress Note ---
Date of Service February 13, 2022 Subjective _ is a _ y/o female G_P_ who is now PPD # _ following (spontaneous vaginal delivery +/- IOP) at _ weeks. Reports feeling well overall this morning. _ abdominal cramping & _/10 pain well managed on analgesics. Voiding _. Tolerating meals overnight and able to ambulate some. _ passing gas and _ bowel movements. Some persistent lochia with some improvement this morning. Breast/Bottle feeding. Review of Systems Denies fever, chills, sweats Denies shortness of breath, difficulty breathing, chest pain, palpitations, chest pressure. Denies breast pain. Denies dysuria. Denies headache or changes in vision. Physical Exam General: Alert, oriented. No acute distress. Cardiac: Regular rate and rhythm, no murmurs/rubs/gallops. Respiratory: Clear to auscultation bilaterally a/p, no wheezes/rales/rhonchi. No increased work of breathing. Symmetrical chest rise. No respiratory distress. Abdomen: Soft, nontender, nondistended. Bowel sounds present. Uterus: Uterine fundus firm, palpable _ cm below umbilicus. Lower Extremities: No lower extremity edema or swelling. No deep calf pain. Manasa's negative bilaterally. Results & Data ([facility]) Vital Signs (Past 12 Hours) Vital Signs Temp Pulse Pulse Resp BP BP Pulse Ox 02/13/22 08:10 36.4 C L 72 18 127/88 99 02/13/22 07:05 36.5 C 20 02/13/22 06:34 18 02/13/22 06:04 16 02/13/22 05:50 18 02/13/22 05:35 16 02/13/22 05:20 16 02/13/22 05:04 18 02/13/22 04:29 37.0 C 18 02/13/22 06:49 76 122/58 L 02/13/22 06:34 67 128/63 02/13/22 06:19 78 131/68 02/13/22 06:04 80 140/71 02/13/22 05:50 82 142/69 H 02/13/22 05:35 77 131/75 02/13/22 05:20 87 125/95 02/13/22 05:04 91 H 136/88 02/13/22 04:24 97 H 138/79 O2 Del Method 07/21/22 08:10 Room Air 02/13/22 07:05 02/13/22 06:34 02/13/22 06:04 02/13/22 05:50 02/13/22 05:35 02/13/22 05:20 02/13/22 05:04 02/13/22 04:29 02/13/22 06:49 02/13/22 06:34 02/13/22 06:19 02/13/22 06:04 02/13/22 05:50 02/13/22 05:35 02/13/22 05:20 02/13/22 05:04 02/13/22 04:24 Resident Activity Tracking Resident Involvement: Resident Care Provided Care Provided: OB Delivery
[2022-02-14] MEDS: IBUPROFEN 600 MG TAB PO PRN ×2 (04:44→08:37)
--- NOTE | 2022-02-14 05:57 | Obstetrical Progress Note ---
Date of Service <Tiffany Brown - Last Filed: 02/14/22 06:37> February 14, 2022 Assessment & Plan <Tiffany Brown - Last Filed: 02/14/22 06:37> (1) Status post vaginal delivery: Plan continue OOB, ambulation, diet as tolerated <Gail Ruiz MD, FACOG - Last Filed: 02/14/22 07:43> (1) Status post vaginal delivery: Subjective <Tiffany Brown - Last Filed: 02/14/22 06:37> Heidi is a 31 y/o female who is now PPD # 1 following vaginal delivery at 39 6/7 weeks. Reports feeling well overall this morning. Mild abdominal cramping & pain well managed on analgesics. Voiding. Tolerating meals overnight and able to ambulate some. Is passing gas, but no bowel movements. Some persistent lochia with some improvement this morning. Breast feeding. Review of Systems Denies fever, chills, sweats Denies shortness of breath, difficulty breathing, chest pain, palpitations, chest pressure. Denies breast pain. Denies dysuria. Denies headache or changes in vision. Physical Exam <Tiffany Brown - Last Filed: 02/14/22 06:37> General: Alert, oriented. No acute distress. Cardiac: Regular rate and rhythm, no murmurs/rubs/gallops. Respiratory: Clear to auscultation bilaterally a/p, no wheezes/rales/rhonchi. No increased work of breathing. Symmetrical chest rise. No respiratory distress. Abdomen: Soft, nontender, nondistended. Bowel sounds present. Uterus: Uterine fundus firm, palpable 3 cm below umbilicus. Lower Extremities: No lower extremity edema or swelling. No deep calf pain. Manasa's negative bilaterally. Results & Data ([facility]) <Tiffany Brown - Last Filed: 02/14/22 06:37> Vital Signs (Past 12 Hours) Vital Signs Temp Pulse Resp BP Pulse Ox O2 Del Method 02/13/22 23:11 36.7 C 82 16 121/77 98 Room Air 02/13/22 19:05 36.5 C 82 16 126/86 99 Room Air <Gail Ruiz MD, FACOG - Last Filed: 02/14/22 07:43> Co-Signing Physician Notes Resident Physician Supervision Note: I interviewed and examined the patient. Discussed with Dr. Brown and agree with findings and plan as documented in the note. Any exceptions or clarifications are listed here: Doing well. Plan d/c if baby d/c, incomplete gbs treatment. d/c prepared and ready. Instructions given. Documented By: Gail Ruiz MD, FACOG
[2022-02-14 06:12] LABS: Hematocrit (blood only) 32.8 % (34.1-44.9); Hemoglobin 10.4 g/dl (12.0-16.0); Mean Corpuscular Hemoglobin 24.6 pg (25.0-34.0); Mean Corpuscular Hgb Conc 31.7 g/dL (32.0-36.0); Mean Corpuscular Volume 77.5 fL (80.0-100.0); Mean Platelet Volume 10.5 fL (9.4-12.3); Platelet Count 154 K/uL (130-400); RDW Coefficient of Variation 14.6 % (11.5-14.5); Red Blood Count 4.23 M/uL (3.93-5.22); White Blood Count 9.76 K/ul (4.8-10.8)
[2022-02-14] MEDS: PRENATAL VITAMIN 1 TAB PO SCH (08:38)
[2022-02-14] MEDS: DOCUSATE SODIUM 100 MG CAP PO SCH (08:38)
[2022-02-14] MEDS ORDERED: bisacodyL 5 MG TABEC PO SCH (20:00)
[2022-02-15] MEDS ORDERED: bisacodyL 10 MG SUPP PR PRN (06:38)
== END 2022-02-14 13:48 | disposition home or self-care (01) | DRG 807 ==
LOC: OPB 04:14 → 4S1 04:15 → 4E2 07:20